=== PATIENT | female | born 1995 | race Caucasian/White ===

== ENCOUNTER → 2016-08-28 | Outpatient (CLI) | payer BC | LOC: OD 10:52 | PROVIDERS: ATTEND Family Medicine | DX: J45.21 Mild intermittent asthma with (acute) exacerbation (principal) | CPT/HCPCS: 71020 ==

== ENCOUNTER 2017-07-24 08:06 | Day surgery (SDC) | payer BC ==
[~2017-07-24 08:06] MED LIST: DIPHENHYDRAMINE HCL 50 MG/ML VIAL ONE; EPINEPHRINE INJ 1 MG/10 ML DISP.SYRIN ONE; FENTANYL CITRATE INJ/PF 100 MCG/2 ML AMPUL ONE; FLUMAZENIL INJ 0.5 MG/5 ML VIAL ONE; GLUCAGON,HUMAN RECOMB 1 MG INJ ONE; NALOXONE HCL INJ/PF 0.4 MG/1 ML SDV ONE; ONDANSETRON HCL INJ/PF 4 MG/2 ML SDV ONE
[2017-07-24] MEDS: MIDAZOLAM 2 MG/2 ML INJ ONE ×3 (08:30→08:38)
[2017-07-24] MEDS: FENTANYL CITRATE INJ/PF 100 MCG/2 ML AMPUL ONE ×2 (08:32→08:34)
[2017-07-24 09:47] VITALS: BP 113/68
--- NOTE | 2017-07-24 12:24 | Operative Report ---
Operative Report DATE OF SURGERY: 07/24/17 Operative Report: The risks benefits and alternatives of the procedure explained to the patient in detail and informed consent is obtained.A GIF Olympus video scope was inserted into the patient's mouth and hypopharynx, the esophagus is identified intubated and insufflated, the scope was then advanced through the esophagus stomach and duodenum ,retroflexion maneuver is done, the esophagus stomach and first and second portions of the duodenum examined PREOPERATIVE DIAGNOSIS: Noncardiac chest pain, gastroesophageal reflux disease. POSTOPERATIVE DIAGNOSIS: Gastritis status post biopsy rule out Helicobacter pylori. Hiatal hernia OPERATION: EGD with biopsy SURGEON: ANA MARIA BRASHER ANESTHESIA: Moderate Sedation - 6 mg of Versed, 100 mcg of fentanyl. Conscious sedation monitoring time 30 minutes. TISSUE REMOVED OR ALTERED: Gastric mucosal specimen obtained rule out Helicobacter pylori COMPLICATIONS: None. ESTIMATED BLOOD LOSS: None. INTRAOPERATIVE FINDINGS: As noted above. PROCEDURE: Patient tolerated procedure well. No immediate postprocedure complications are noted. Patient discharged in good condition. Discharge date 07/24/2017. Discharge diet: Regular. Discharge activity: Regular. 2-3 week follow-up to discuss findings. Patient is instructed call the office or proceed to the emergency room should there be any further problems or questions. We will await pathology.
== END 2017-07-24 10:05 | disposition home or self-care (01) ==
LOC: END 08:06
PROVIDERS: ATTEND Internal Medicine Gastroenterology
PROC: 0DB68ZX Excision of Stomach, Via Natural or Artificial Opening Endoscopic, Diagnostic (ICD-10-PCS; principal; 2017-07-24 08:30)
DX: K31.9 Disease of stomach and duodenum, unspecified (principal); K44.9 Diaphragmatic hernia without obstruction or gangrene; K21.9 Gastro-esophageal reflux disease without esophagitis; R07.89 Other chest pain; I45.6 Pre-excitation syndrome; I49.5 Sick sinus syndrome; Z79.899 Other long term (current) drug therapy; Z79.51 Long term (current) use of inhaled steroids; Z79.3 Long term (current) use of hormonal contraceptives
CPT/HCPCS: 43239; 88342 ×2; 88305 ×2; J2250; J3010; J0171; J1200; J1610; J2310; J2405; J3490

== ENCOUNTER 2018-01-01 02:17 | Emergency (ER) | payer BC ==
--- NOTE | 2018-01-01 03:25 | ER Document Report ---
ED General - General Chief Complaint: Abdominal Pain Stated Complaint: STOMACH PAIN Time Seen by Provider: 01/01/18 03:25 Notes: Patient is a 22 year old female who presents to the Ed complaining of nausea, lower abdominal pain and cramping. She states these symptoms started after eating [employer] this evening. She states she woke up with cramping abdominal pain and nausea without improvement after home "nausea pills". PMH: TRAVEL OUTSIDE OF THE [place] IN LAST 30 DAYS: No - Related Data Allergies/Adverse Reactions: cefpodoxime proxetil [From Vantin] Allergy (Verified 07/24/17 08:05) Past Medical History - Social History Smoking Status: Never Smoker Family History: Reviewed & Not Pertinent, DM, Hypertension - Past Medical History Cardiac Medical History: Denies: Hx Coronary Artery Disease, Hx Heart Attack, Hx Hypertension Pulmonary Medical History: Reports: Hx Bronchitis Denies: Hx Asthma, Hx COPD, Hx Pneumonia Neurological Medical History: Denies: Hx Cerebrovascular Accident, Hx Seizures Musculoskeltal Medical History: Denies Hx Arthritis Past Surgical History: Reports: Hx Cardiac Catheterization - Ablation x 2. Denies: Hx Hysterectomy - Immunizations Hx Diphtheria, Pertussis, Tetanus Vaccination: Yes Physical Exam - Vital signs Vitals: Temp Pulse Resp BP Pulse Ox 99.3 F 94 18 137/91 H 96 01/01/18 02:18 01/01/18 02:18 01/01/18 02:18 01/01/18 02:18 01/01/18 02:18 - Notes Notes: PHYSICAL EXAM GENERAL: Alert, interacts well. HEAD: Normocephalic, atraumatic. EYES: Pupils equal, round, and reactive to light. Extraocular movements intact. ENT: Oral mucosa moist, tongue midline. NECK: Full range of motion. Supple. Trachea midline. LUNGS: Clear to auscultation bilaterally, no wheezes, rales, or rhonchi. No respiratory distress. HEART: Regular rate and rhythm. No murmurs, gallops, or rubs. ABDOMEN: Soft, mild distension and LLQ tenderness. No guarding, rebound, or rigidity.. Bowel sounds present in all 4 quadrants. EXTREMITIES: Moves all 4 extremities spontaneously. No edema. No cyanosis. NEUROLOGICAL: Alert and oriented x4. Normal speech. PSYCH: Normal affect, normal mood. SKIN: Warm, dry, normal turgor. No rashes or lesions noted. Course - Re-evaluation Re-evalutation: 01/01/18 06:34 Presentation of generalized, intermittent abdominal pain. CT negative for diverticulitis and normal appendix. Symptoms resolved after PO bentyl and toradol Vitals are normal at the time of arrival. Laboratories are unremarkable without evidence of cystitis, , or leukocytosis. Patient is overall very well in appearance. Based on clinical history and examination I do not suspect an acute appendicitis, tubo-ovarian abscess, related pathology, pelvic inflammatory disease, mesenteric ischemia, or pyelonephritis. Will discharge home with return precautions and followup recommendations. - Vital Signs Vital signs: Temp Pulse Resp BP Pulse Ox 99.3 F 94 18 116/68 96 01/01/18 02:18 01/01/18 02:18 01/01/18 02:18 01/01/18 05:58 01/01/18 02:18 - Laboratory Result Diagrams: 01/01/18 03:25 01/01/18 03:25 Laboratory results interpreted by me: 01/01/18 01/01/18 01/01/18 03:25 03:25 04:15 WBC 11.1 H Seg Neutrophils % 80.6 H Lymphocytes % 11.8 L Absolute Neutrophils 9.0 H Sodium 147.5 H Ur Leukocyte Esterase MODERATE H - Diagnostic Test Radiology reviewed: Image reviewed, Reports reviewed Discharge - Discharge Clinical Impression: Abdominal pain Qualifiers: Abdominal location: generalized Qualified Code(s): R10.84 - Generalized abdominal pain Condition: Good Disposition: HOME, SELF-CARE Additional Instructions: ABDOMINAL PAIN: There are many causes of abdominal pain. Pain can mean a serious problem requiring surgery (such as appendicitis). It can also be an innocent problem that goes away on its own (such as a viral infection). Often, time must pass to determine the cause of pain. The physician does not feel that hospitalization is necessary, at present. Things may change within the next 24 hours. Call the doctor or come back for re- examination if any problems occur, such as: (1) Pain that becomes more severe, steady, or becomes concentrated in one specific area. Also, pain that is more severe with movement or coughing. (2) Vomiting that persists or becomes more frequent. (3) Blood in the vomitus, urine, or bowel movements. Blood in the stool may have a tarry or black appearance. (4) Shaking chills or fever greater than 100 degrees F. (5) The abdomen becomes more distended or swollen. (6) Bowel movements cease. (7) Failure to improve as expected. NORMAL EXAM AND WORKUP: At this time, your examination and workup show no significant abnormality. No significant abnormal physical findings are noted. All laboratory, EKG, and imaging (x-ray, CT scans, ultrasound) studies that were ordered show no significant abnormality. Although your examination and all studies that were ordered showed no significant abnormal finding, there are no examinations and no studies that are 100% accurate. There is always the possibility that some abnormality could exist and not be detected with physical examination or within the limits and capabilities of laboratory and other studies. You should return or follow up as you were instructed on your visit today for further evaluation if your symptoms do not resolve. TORADOL INJECTION: You have been given an injection of ketorolac tromethamine (Toradol). This is an excellent, safe drug for pain control. It also has potent antiinflammatory action. You should have significant pain relief within about one hour. Toradol is not addicting and is non-sedating. It does not interfere with driving or work. Call or return if you develop itching, hives, shortness of breath, or rash. ANTINAUSEA MEDICATION: You have been given a medication to suppress nausea and vomiting. This type of medication can be given as a shot, pill, or suppository. It will usually last for many hours. Pills and shots usually last six to eight hours, suppositories last about 12 hours. For the typical illness, only one or two doses of the medication may be necessary. Mild lightheadedness may occur. This type of medicine can cause drowsiness. Do not drive or operate dangerous machinery while under its influence. Do not mix with alcohol. See your doctor at once if you have muscle spasms or tightness, or uncontrollable motions (particularly of the neck, mouth, or jaw). Persistent vomiting or severe lightheadedness should also be evaluated by the physician. ANTISPASMODICS: You have been given a prescription for an antispasmodic medicine. This type of drug is used to decrease cramping and pain in the intestines. It is also used to decrease secretion of internal fluids (such as stomach acid in ulcer disease or pancreatic juice in pancreas disease). This medicine may cause drowsiness, especially with the first dose. Do not operate machinery or drive until all side effects have resolved. Do not combine with alcohol. Other common side effects include dry mouth and eyes. In older persons, antispasmodics can occasionally cause urinary retention, constipation, or trouble focusing the eyes. Glaucoma may be worsened by this medicine. FOLLOW-UP CARE: If you have been referred to a physician for follow-up care, call the physician s office for an appointment as you were instructed or within the next two days. If you experience worsening or a significant change in your symptoms, notify the physician immediately or return to the Emergency Department at any time for re-evaluation. Prescriptions: Dicyclomine HCl [Bentyl 20 mg Tablet] 20 mg PO QID #40 tablet Ondansetron HCl [Zofran 4 mg Tablet] 1 - 2 tab PO Q4H PRN #15 tablet PRN Reason: Forms: Return to Work Referrals: BARBARA FOSTER PA-C [Primary Care Provider] - Follow up in 1 week
[2018-01-01] MEDS ORDERED: NORMAL SALINE 1000 ML 1,000 ML IV ONE (03:32)
[2018-01-01] MEDS ORDERED: ONDANSETRON HCL INJ/PF 4 MG/2 ML SDV IV ONE (03:32)
[2018-01-01] MEDS ORDERED: MORPHINE SULFATE 10 MG/ML INJ IV ONE (03:33)
[2018-01-01 03:36] LABS: ABSOLUTE EOSINOPHILS # (AUTO) 0.1 10^3/uL (0.0-0.6); ABSOLUTE LYMPHOCYTES (AUTO) 1.3 10^3/uL (0.5-4.7); ABSOLUTE MONOCYTES (AUTO) 0.7 10^3/uL (0.1-1.4); BASOPHILS % (AUTO) 0.3 % (0-2); EOSINOPHILS % (AUTO) 0.9 % (0-6); HEMATOCRIT 41.6 % (36.0-47.0); HEMOGLOBIN 14.7 g/dL (12.0-15.5); LYMPHOCYTES % (AUTO) 11.8 % (13-45); MEAN CORPUSCULAR HEMOGLOBIN 29.8 pg (27.0-33.4); MEAN CORPUSCULAR HGB CONC 35.2 g/dL (32.0-36.0); MEAN CORPUSCULAR VOLUME 85 fl (80-97); MONOCYTES % (AUTO) 6.4 % (3-13); PLATELET COUNT 353 10^3/uL (150-450); RED BLOOD COUNT 4.93 10^6/uL (3.72-5.28); RED CELL DISTRIBUTION WIDTH 12.4 % (11.5-14.0); SEGMENTED NEUTROPHILS % (AUTO) 80.6 % (42-78); TOTAL CELLS COUNTED % (AUTO) 100 %; WHITE BLOOD COUNT 11.1 10^3/uL (4.0-10.5)
[2018-01-01 03:53] LABS: ALANINE AMINOTRANSFERASE 24 U/L (9-52); ALBUMIN 4.4 g/dL (3.5-5.0); ALKALINE PHOSPHATASE 98 U/L (38-126); ANION GAP 14 (5-19); ASPARTATE AMINO TRANSFERASE 20 U/L (14-36); BILIRUBIN,DIRECT 0.4 mg/dL (0.0-0.4); BILIRUBIN,TOTAL 0.4 mg/dL (0.2-1.3); BLOOD UREA NITROGEN 9 mg/dL (7-20); CALCIUM 9.4 mg/dL (8.4-10.2); CARBON DIOXIDE 27 mmol/L (22-30); CHLORIDE 107 mmol/L (98-107); GLUCOSE 102 mg/dL (75-110); LIPASE 48.2 U/L (23-300); SODIUM 147.5 mmol/L (137-145); TOTAL PROTEIN 7.8 g/dL (6.3-8.2)
[2018-01-01 04:33] LABS: APPEARANCE,URINE CLEAR; BILIRUBIN,URINE NEGATIVE (NEGATIVE); COLOR,URINE YELLOW; GLUCOSE, URINE NEGATIVE (NEGATIVE); KETONES,URINE NEGATIVE (NEGATIVE); LEUKOCYTE ESTERASE,URINE MODERATE (NEGATIVE); NITRITE,URINE NEGATIVE (NEGATIVE); PROTEIN,URINE NEGATIVE (NEGATIVE); UROBILINOGEN,URINE NEGATIVE mg/dL (<2.0)
--- NOTE | 2018-01-01 05:36 | RADIOLOGY REPORT (SQ) ---
EXAM DESCRIPTION: CT ABDOMEN AND PELVIS WITH CONTRAST CLINICAL HISTORY: LLQ pain COMPARISON: None Available. TECHNIQUE: CT of the abdomen and pelvis performed following IV administration of 73.2 mL of Isovue-370. Delayed images obtained. DLP: 800.56 mGycm FINDINGS: Lung Bases: The visualized lung bases are clear. Bones: No destructive bone lesions identified. Degenerative change of the lumbar spine predominantly at L5/S1 Abdomen: Liver: The liver has normal size and density. No intrahepatic mass or biliary dilatation. Gallbladder: No calcified gallstones. Spleen, Pancreas, and Adrenal Glands: The spleen, pancreas, and adrenal glands are unremarkable. Kidneys: The kidneys have normal size and contour without evidence of solid mass or hydronephrosis. Vasculature: The aorta and IVC have normal caliber and position. The portal vein is patent. The proximal visceral and renal arteries are patent. Stomach: The stomach and duodenum have normal course. Other: No free intraperitoneal air. No free fluid or lymphadenopathy. Pelvis: Bladder: Urinary bladder is unremarkable. Bowel: No dilated loops of large or small bowel. Appendix: Normal appendix. Pelvis: Uterus is not enlarged. IMPRESSION: 1. No acute inflammatory or obstructive process identified. This exam was performed according to our departmental dose-optimization program, which includes automated exposure control, adjustment of the mA and/or kV according to patient size and/or use of iterative reconstruction technique.
[2018-01-01] MEDS ORDERED: KETOROLAC TROMETHAMINE INJ/PF 30 MG/1 ML SDV IV ONE (05:42)
[2018-01-01] MEDS ORDERED: METOCLOPRAMIDE HCL INJ/PF 10 MG/2 ML SDV IV ONE (05:42)
[2018-01-01] MEDS ORDERED: DICYCLOMINE HCL 20 MG TABLET PO ONE (05:44)
[2018-01-01 06:45] VITALS: BP 114/66
== END 2018-01-01 06:46 | disposition home or self-care (01) ==
LOC: ER 02:17
DX: R10.84 Generalized abdominal pain (principal); R11.0 Nausea
CPT/HCPCS: 99284; 96361; 96374; 96375; 36415; 83690; 84703; 85025; 80053; 81001; 74177; J3490; J1885; J2765; J2270; J2405; J7030

== ENCOUNTER 2018-10-28 12:52 | Emergency (ER) | payer BC ==
--- NOTE | 2018-10-28 13:30 | ER Document Report ---
ED Medical Screen (RME) - General Chief Complaint: Vaginal Bleeding Stated Complaint: VAGINAL BLEEDING Time Seen by Provider: 10/28/18 13:22 Primary Care Provider: BARBARA FOSTER PA-C [Primary Care Provider] - Follow up as needed Notes: Patient is a 22-year-old female currently approximately 6 weeks gravid that presents to the emergency department for chief complaint of vaginal bleeding. ROS: Other than noted above, the 12 point review of systems was reviewed with the patient and were negative, all pertinent findings are included in the HPI. PHYSICAL EXAMINATION: Vital signs reviewed. GENERAL: Well-appearing, well-nourished and in no acute distress. HEAD: Atraumatic, normocephalic. EYES: Pupils equal round extraocular movements intact, conjunctiva are normal. ENT: Nares patent NECK: Normal range of motion CV: Heart regular rate and rhythm LUNGS: No respiratory distress Musculoskeletal: Normal range of motion NEUROLOGICAL: Normal speech PSYCH: Normal mood, normal affect. MDM: Patient seen and examined for rapid initial assessment. Vital signs reviewed. A comprehensive ED assessment and evaluation of the patient, analysis of test results and completion of the medical decision making process will be conducted by additional ED providers. *Note is created using voice recognition software and may contain spelling, syntax or grammatical errors. TRAVEL OUTSIDE OF THE [place] IN LAST 30 DAYS: No - Related Data Allergies/Adverse Reactions: cefpodoxime proxetil [From Vantin] Allergy (Verified 10/28/18 12:57) Past Medical History - Past Medical History Cardiac Medical History: Denies: Hx Coronary Artery Disease, Hx Heart Attack, Hx Hypertension Pulmonary Medical History: Reports: Hx Bronchitis Denies: Hx Asthma, Hx COPD, Hx Pneumonia Neurological Medical History: Denies: Hx Cerebrovascular Accident, Hx Seizures Renal/ Medical History: Denies: Hx Peritoneal Dialysis Musculoskeltal Medical History: Denies Hx Arthritis Past Surgical History: Reports: Hx Cardiac Catheterization - Ablation x 2. Denies: Hx Hysterectomy - Immunizations Hx Diphtheria, Pertussis, Tetanus Vaccination: Yes Influenza Administration Date for 05/2017 - 10/2017 Season: 06/03/17 Physical Exam - Vital signs Vitals: Temp Pulse Resp BP Pulse Ox 98.3 F 86 16 122/82 97 10/28/18 13:19 10/28/18 13:19 10/28/18 13:19 10/28/18 13:19 10/28/18 13:19 Course - Vital Signs Vital signs: Temp Pulse Resp BP Pulse Ox 98.3 F 86 16 122/82 97 10/28/18 13:19 10/28/18 13:19 10/28/18 13:19 10/28/18 13:19 10/28/18 13:19 Doctor's Discharge - Discharge Referrals: BARBARA FOSTER PA-C [Primary Care Provider] - Follow up as needed
--- NOTE | 2018-10-28 14:18 | ER Document Report ---
ED General - General Chief Complaint: Vaginal Bleeding Stated Complaint: VAGINAL BLEEDING Time Seen by Provider: 10/28/18 13:22 [facility]: [facility] - Follow up in 3-5 days BARBARA FOSTER PA-C [Primary Care Provider] - Follow up as needed TRAVEL OUTSIDE OF THE [place] IN LAST 30 DAYS: No - HPI Notes: Patient is a 22-year-old female approximately 6 weeks who presents to the emergency department complaining of pelvic cramping and light vaginal bleeding. Patient states that the cramping began 2 days ago and the bleeding started this morning. Patient has not had any other vaginal odor or discharge. She is still able to eat and drink without difficulty. She is urinating normally and having normal soft bowel movements with the last one this morning. She otherwise has a medical history significant for pots and [id number]. Denies any headache, fever, neck pain, URI, sore throat, chest pain, palpitations, syncope, cough, shortness of breath, wheeze, dyspnea, nausea/vomiting/diarrhea, urinary retention, dysuria, hematuria, back pain, or rash. - Related Data Allergies/Adverse Reactions: cefpodoxime proxetil [From Vantin] Allergy (Verified 10/28/18 12:57) Past Medical History - Social History Smoking Status: Never Smoker Family History: Reviewed & Not Pertinent, DM, Hypertension Patient has suicidal ideation: No Patient has homicidal ideation: No - Past Medical History Cardiac Medical History: Denies: Hx Coronary Artery Disease, Hx Heart Attack, Hx Hypertension Pulmonary Medical History: Reports: Hx Bronchitis Denies: Hx Asthma, Hx COPD, Hx Pneumonia Neurological Medical History: Denies: Hx Cerebrovascular Accident, Hx Seizures Renal/ Medical History: Denies: Hx Peritoneal Dialysis Musculoskeletal Medical History: Denies Hx Arthritis Past Surgical History: Reports: Hx Cardiac Catheterization - Ablation x 2. Denies: Hx Hysterectomy - Immunizations Hx Diphtheria, Pertussis, Tetanus Vaccination: Yes Review of Systems - Review of Systems -: Yes All other systems reviewed and negative Physical Exam - Vital signs Vitals: Temp Pulse Resp BP Pulse Ox 98.3 F 86 16 122/82 97 10/28/18 13:19 10/28/18 13:19 10/28/18 13:19 10/28/18 13:19 03/28/19 13:19 - Notes Notes: PHYSICAL EXAMINATION: GENERAL: Well-appearing, well-nourished and in no acute distress. LUNGS: Breath sounds clear to auscultation bilaterally and equal. No wheezes rales or rhonchi. HEART: Regular rate and rhythm without murmurs, rubs, gallops. ABDOMEN: Soft, no focal tenderness, nondistended abdomen. No guarding, no gala ound. No masses appreciated. Normal bowel sounds present. No CVA tenderness bilaterally. Griffiths negative and no tenderness at McBurney point : deferred Musculoskeletal: FROM to passive/active. Strength 5+/5. Extremities: No cyanosis, clubbing, or edema b/l. Peripheral pulses 2+. Capillary refill less than 3 seconds. NEUROLOGICAL: Normal speech, normal gait. PSYCH: Normal mood, normal affect. SKIN: Warm, Dry, normal turgor, no rashes or lesions noted. Course - Re-evaluation Re-evalutation: 10/28/18 Patient is an afebrile, well-hydrated, 22-year-old female who presents to the ED with bleeding in early and subsequent miscarriage. Vitals are acceptable without any significant tachycardia, tachypnea, or hypoxia. PE is otherwise unremarkable. HCG at 7 (very low). TVUS shows no evidence of IUP. UA questionable for UTI, could be contaminate due to blood and skin cells. Pt will be placed on Macrobid while culture is pending and may stop in 2 days if unremarkable. Patient is nontoxic-appearing is tolerating p.o. without any difficulties. No other labs or imaging warranted at this time based on H&P. Low suspicion/risk for acute appendicitis, bowel obstruction, acute cholecystitis, acute cholangitis, perforated diverticulitis, incarcerated hernia, pancreatitis, perforated ulcer, peritonitis, sepsis, pelvic inflammatory disease, ectopic , tubo-ovarian abscess, ovarian torsion, retained parts, or other systemic emergent condition at this time. Patient is aware that her condition can change from initial presentation and she needs to monitor symptoms closely and seek medical attention if any acute changes. Conservative measures otherwise for symptoms. Recheck with your PCM/OBGYN in 3-5 days. Return to the ED with any worsening/concerning symptoms otherwise as reviewed in discharge. Patient is in agreement. - Vital Signs Vital signs: Temp Pulse Resp BP Pulse Ox 98.3 F 86 16 122/82 97 03/28/19 13:19 10/28/18 13:19 10/28/18 13:19 10/28/18 13:19 10/28/18 13:19 - Laboratory Laboratory results interpreted by me: 10/28/18 10/28/18 13:35 13:52 Beta HCG, Quant 7.14 H Urine Protein 30 H Urine Blood LARGE H Ur Leukocyte Esterase SMALL H Discharge - Discharge Clinical Impression: Bleeding in early , Miscarriage Condition: Stable Disposition: HOME, SELF-CARE Instructions: Miscarriage ([facility]) Additional Instructions: Maintain fluid intake Proper hygienic technique Keep the skin clean Tylenol/ibuprofen as needed F/u with your PCM/OBGYN in 3-5 days for a recheck Return to the ED with any development of HURLEY/fever, trouble with vision, eye redness, worsening pain, urethral discharge, urinary retention, blood in the urine, flank pain, abdominal pain, n/v, Chest Pain, shortness of breath, joint pains, trouble breathing, or any other worsening/concerning symptoms as needed otherwise. Prescriptions: Nitrofurantoin/Nitrofuran Mac [Macrobid 100 mg Capsule] 1 tab PO BID #14 capsule Referrals: BARBARA FOSTER PA-C [Primary Care Provider] - Follow up as needed [facility] [Provider Group] - Follow up in 3-5 days
[2018-10-28 14:53] LABS: APPEARANCE,URINE CLEAR; BILIRUBIN,URINE NEGATIVE (NEGATIVE); GLUCOSE, URINE NEGATIVE (NEGATIVE); KETONES,URINE NEGATIVE (NEGATIVE); LEUKOCYTE ESTERASE,URINE SMALL (NEGATIVE); NITRITE,URINE NEGATIVE (NEGATIVE); PROTEIN,URINE 30 mg/dL (NEGATIVE); UROBILINOGEN,URINE NEGATIVE mg/dL (<2.0)
[2018-10-28 14:54] LABS: COLOR,URINE RED
--- NOTE | 2018-10-28 16:26 | RADIOLOGY REPORT (SQ) ---
EXAM DESCRIPTION: U/S OB TRANSVAGINAL W/O DOP COMPLETED DATE/TIME: 10/28/2018 4:20 pm REASON FOR STUDY: 6wks gravid vaginal bleeding COMPARISON: None. TECHNIQUE: Transvaginal static and realtime grayscale images acquired of the pelvis. Additional cassandra cted spectral and color Doppler images recorded. All images stored on PACs. [id number] CLINICAL DATES: LMP 09/21/2018 LIMITATIONS: None. FINDINGS: Sonographic imaging shows no identifiable intrauterine gestation. UTERUS: No masses or anomalies. 8.7 x 3.6 x 4.3 cm. CERVICAL LENGTH: 2.7 cm. Closed. RIGHT ADNEXA: Normal ovary with normal vascular flow. 2.5 x 1.4 x 2.1 cm. No adnexal free fluid. No adnexal masses. LEFT ADNEXA: Normal ovary with normal vascular flow. 2.4 x 1.9 x 2.2 cm. No adnexal free fluid. No adnexal masses. FREE FLUID: None. OTHER: No other significant finding. IMPRESSION: There is no intrauterine gestation at this time. Follow-up as clinically indicated. TECHNICAL DOCUMENTATION: JOB ID: [id number] [employer]- All Rights Reserved rev Reading location - IP/workstation name: [email or web address]
[2018-10-28 16:51] VITALS: BP 147/80
--- NOTE | 2018-10-28 22:11 | ER Document Report ---
Doctor's Note Notes: I personally and independently obtained patient history and examined the patient in conjunction with the APC and agree with the assessment, treatment plan and disposition of the patient as recorded by the APC, and have reviewed the APC's note. HISTORY OF PRESENT ILLNESS: Patient is a 22-year-old female currently approximately 6 weeks gravid that presents to the emergency department for chief complaint of vaginal bleeding. ROS: Other than noted above, the 12 point review of systems was reviewed with the patient and were negative, all pertinent findings are included in the HPI. PHYSICAL EXAMINATION: Vital signs reviewed. GENERAL: Well-appearing, well-nourished and in no acute distress. HEAD: Atraumatic, normocephalic. EYES: Pupils equal round extraocular movements intact, conjunctiva are normal. ENT: Nares patent NECK: Normal range of motion CV: Heart regular rate and rhythm LUNGS: No respiratory distress Musculoskeletal: Normal range of motion NEUROLOGICAL: Normal speech PSYCH: Normal mood, normal affect. MEDICAL DECISION MAKING: Patient seen and examined, vital signs reviewed, patient ultrasound was reviewed, which did not demonstrate intrauterine , indicative of likely miscarriage, given that the patient was , and low hCG count. She was advised to follow-up with RECORDS MANAGEMENT ASSISTANT at this point. Please review detail APC documentation. *Note is created using voice recognition software and may contain spelling, syntax or grammatical errors. Laboratory 10/28/18 10/28/18 10/28/18 13:35 13:52 13:52 Beta HCG, Quant 7.14 H Total Beta HCG POSITIVE Urine Color RED Urine Appearance CLEAR Urine pH 6.0 Ur Specific [place] 1.010 Urine Protein 30 H Urine Glucose (UA) NEGATIVE Urine Ketones NEGATIVE Urine Blood LARGE H Urine Nitrite NEGATIVE Urine Bilirubin NEGATIVE Urine Urobilinogen NEGATIVE Ur Leukocyte Esterase SMALL H Urine WBC (Auto) 36 Urine RBC (Auto) >182 Squamous Epi Cells Auto 4 Urine Ascorbic Acid NEGATIVE Blood Type O POSITIVE Rhogam Indicated RHOGAM NOT INDICATED Obstetrics Ultrasound 10/28/18 13:30 IMPRESSION: There is no intrauterine gestation at this time. Follow-up as clinically indicated.
== END 2018-10-28 16:51 | disposition home or self-care (01) ==
LOC: ER 12:52
DX: O03.9 Complete or unspecified spontaneous abortion without complication (principal); O26.891 Other specified pregnancy related conditions, first trimester; R10.2 Pelvic and perineal pain; Z3A.01 Less than 8 weeks gestation of pregnancy
CPT/HCPCS: 36415; 76817; 81001; 84702; 86900; 86901; 87086; 99284